=== PATIENT | male | born 1940 | race Caucasian/White ===

== ENCOUNTER 2019-04-23 12:48 | Inpatient (IN) | payer MEDICARE ==
--- NOTE | 2019-04-23 13:17 | ED ---
General Adult HPI - General Chief complaint: Shortness of Breath Stated complaint: SOB Time Seen by Provider: 04/23/19 12:54 Source: patient, RN/MD, EMS Mode of arrival: EMS Limitations: no limitations - History of Present Illness Initial comments: Dictation was produced using [employer] dictation software. please excuse any grammatical, word or spelling errors. Chief Complaint: 79-year-old male with past medical history of glaucoma and appendectomy presents via EMS as a transfer from [facility] for concerns for congestive heart failure. History of Present Illness: 79-year-old male he initially presented to [facility] emergency department for chief complaint of shortness of breath. Patient was initially seen at Dr. Alvarado's office for shortness of breath 1 week. Patient was constantly short of breath however it is slightly worse with exertion. Patient has not had medical care throughout most of his life. At that hospital is found to have abnormal prematurity peptide and elevated troponin. Patient has a brain atrophy peptide of 32,000. Patient was also found to have acute kidney injury to creatinine of 3.9. Patient evaluated at bedside denies any significant complaints at this time. He does feel slightly short of breath currently. He has no pain complaints. The ROS documented in this emergency department record has been reviewed and confirmed by me. Those systems with pertinent positive or negative responses have been documented in the HPI. All other systems are other negative and/or noncontributory. PHYSICAL EXAM: General Impression: Alert and oriented x3, not in acute distress HEENT: Normocephalic atraumatic, extra-ocular movements intact, pupils equal and reactive to light bilaterally, mucous membranes moist. Cardiovascular: Heart regular rate and rhythm, S1&S2 audible, no murmurs, rubs or gallops Chest: Lungs clear to auscultation bilaterally, no rhonchi, no wheeze, no rales Abdomen: Bowel sounds present, abdomen soft, non-tender, non-distended, no organomegaly Musculoskeletal: Pulses present and equal in all extremities, no peripheral edema Motor: no focal deficits noted Neurological: CN II-XII grossly intact, no focal motor or sensory deficits noted Skin: Intact with no visualized rashes Psych: Normal affect and mood ED course: 79-year-old male presents with abnormal laboratory evaluation. He was found to have a troponin of 0.08 32,000 and prematurity peptide, creatinine 3.9 with a BUN of 38. Patient's well-appearing at this time he has no significant complaints. He was given aspirin prior to transfer. He also had a triple paste placed on his left anterior chest. He is well-appearing and resting comfortably smiling. EKG from [facility] showed lateral precordial lead T-wave inversion and depression. There is no old EKG for comparison CT is findings are new. Nonetheless patient has no chest pain at the moment.Discussed patient case with Dr. carson who requests that we contact cardiology to let them know about the patient given his elevated troponin. Discussed patient is a Dr. Bowman he would like to be on consult. Patient given intravenous fluids for his acute kidney injury. Patient is well-appearing with Nitropaste. We will have patient admitted. Patient given intravenous fluids for acute kidney injury. Patient continues to deny any chest pain. - Related Data Home Medications Medication Instructions Recorded Confirmed No Known Home Medications 04/23/19 04/23/19 Allergies Allergy/AdvReac Type Severity Reaction Status Date / Time No Known Allergies Allergy Verified 04/23/19 13:18 Review of Systems ROS Statement: Those systems with pertinent positive or pertinent negative responses have been documented in the HPI. ROS Other: All systems not noted in ROS Statement are negative. Past Medical History Past Medical History: Eye Disorder Additional Past Medical History / Comment(s): GLAUCOMA History of Any Multi-Drug Resistant Organisms: None Reported Past Surgical History: Appendectomy Past Psychological History: No Psychological Hx Reported Smoking Status: Current every day smoker Past Alcohol Use History: None Reported Past Drug Use History: None Reported General Exam Limitations: no limitations Course Vital Signs 04/23/19 04/23/19 12:52 13:21 Temperature 97.8 F Pulse Rate 73 Respiratory 18 20 Rate O2 Sat by Pulse 98 Oximetry Disposition Clinical Impression: DORY (acute kidney injury), Elevated brain natriuretic peptide (BNP) level, Elevated troponin Disposition: ADMITTED IP TO THIS HOSP Condition: Fair Referrals: Elliot Alvarado MD [Primary Care Provider] - 1-2 days Decision Time: 13:58
[2019-04-23] MEDS ORDERED: SODIUM CHLORIDE 0.9% 500 ML IV STA (13:56)
[2019-04-23] MEDS ORDERED: NITROGLYCERIN SL TABS 0.4 MG TAB SUBLINGUAL PRN (13:58)
[2019-04-23] MEDS ORDERED: HEPARIN SODIUM,PORCINE 5,000 UNIT/ML 1 ML VIAL IV ONE (14:01)
[2019-04-23] MEDS ORDERED: HEPARIN SODIUM,PORCINE 5,000 UNIT/ML 1 ML VIAL IV PRN (14:01)
[2019-04-23] MEDS ORDERED: HEPARIN SOD,PORK IN 0.45% NACL 25,000 UNIT in 0.45% NACL 1 250ML.BAG IV SCH (14:15)
--- NOTE | 2019-04-23 14:42 | P.HPIM ---
History of Present Illness This is a pleasant 79 years old male with no significant past medical history. He follow-up with Dr. Alvarado but patient states he has not been in the doctor for 70 years. He smokes about half pack per day but he quit about 5 days ago for dyspnea. He went to see Dr. Alvarado couple days ago for the same and he asked him to come to emergency room, where he wanted to [facility] and from there he was transferred to [facility]. Patient states he has some abdominal bloating but he denies chest pain. No coughing. No headache. No dizziness. No change in urine or bowel habits. No abdominal pain. No nausea vomiting. No change in urine or bowel habits. No fever. He denies alcohol or illicit tracts. Vital showing hypertension with 177/84, saturating 99% on 2 L oxygen. Stites test looks stable. Test at [facility] showing EKG with sinus rhythm at [address] depression in the anterolateral lid, as well to lesser degree in the inferior leads. Chest x-ray: No acute process, he has hyperinflation compatible with COPDPro-BMP is 13-900, CBC is unremarkable except for mild anemia. Sodium and potassium are within normal limits, however creatinine is elevated at 3.9, liver enzymes were not elevated. Magnesium is 2.0, INR is 1.0, CPK 64, troponins are mildly elevated at 0.081 and 0.081 which are above reference range at [place] of 0.030. In the emergency room patient received 1 L of Normosol and was started on heparin drip. As well as aspirin Review of Systems CONSTITUTIONAL: No fever, no malaise, no fatigue. HEENT: No recent visual problems or hearing problems. Denied any sore throat. CARDIOVASCULAR: No orthopnea, PND, no palpitations, no syncope. PULMONARY: No shortness of breath, no cough, no hemoptysis. GASTROINTESTINAL: No diarrhea, no nausea, no vomiting, no abdominal pain. Normoactive bowel sounds. NEUROLOGICAL: No headaches, no weakness, no numbness. HEMATOLOGICAL: Denies any bleeding or petechiae. GENITOURINARY: Denies any burning micturition, frequency, or urgency. MUSCULOSKELETAL/RHEUMATOLOGICAL: Denies any joint pain, swelling, or any muscle pain. ENDOCRINE: Denies any polyuria or polydipsia. Past Medical History Past Medical History: Eye Disorder Additional Past Medical History / Comment(s): GLAUCOMA History of Any Multi-Drug Resistant Organisms: None Reported Past Surgical History: Appendectomy Past Psychological History: No Psychological Hx Reported Smoking Status: Current every day smoker Past Alcohol Use History: None Reported Past Drug Use History: None Reported Medications and Allergies Home Medications Medication Instructions Recorded Confirmed Type No Known Home Medications 04/23/19 04/23/19 History Allergies Allergy/AdvReac Type Severity Reaction Status Date / Time No Known Allergies Allergy Verified 04/23/19 13:18 Physical Exam Vitals: Vital Signs Temp Pulse Resp BP Pulse Ox 04/23/19 14:23 66 18 177/84 99 04/23/19 13:21 20 04/23/19 12:52 97.8 F 73 18 98 Intake and Output 04/22/19 04/23/19 04/23/19 22:59 06:59 14:59 Other: Weight 65.771 kg GENERAL: The patient is alert and oriented x3, not in any acute distress. Well developed, well nourished. HEENT: Pupils are round and equally reacting to light. EOMI. No scleral icterus. No conjunctival pallor. Normocephalic, atraumatic. No pharyngeal erythema. No thyromegaly. CARDIOVASCULAR: S1 and S2 present. No murmurs, rubs, or gallops. PULMONARY: Chest is clear to auscultation, no wheezing or crackles. ABDOMEN: Soft, nontender, nondistended, normoactive bowel sounds. No palpable organomegaly. MUSCULOSKELETAL: No joint swelling or deformity. EXTREMITIES: No cyanosis, clubbing, or pedal edema. NEUROLOGICAL: Gross neurological examination did not reveal any focal deficits. SKIN: No rashes. Assessment and Plan Assessment: Abnormal EKG with ST depression in the anterior lateral metastases and to lesser degree in the inferior leads. The view of elevated troponin Acute kidney injury Elevated proBNP, rule out acute CHF COPD, not in acute exacerbation Nicotine dependence Plan: this is a pleasant 79 years old male who presents with acute kidney injury and possible acute coronary artery disease. We'll call cardiology and nephrology consult. Check kidney ultrasound. We'll check echocardiogram. Continue with nicotine patch. Continue with heparin drip and aspirin. Follow-up creatinine level. Labs and medication were reviewed.. Continue same treatment. Continue with symptomatic treatment. . Monitor lytes and vitals. DVT and GI prophylaxis. Further recommendations of the clinical course of the patient DVT prophylaxis: Subcutaneous heparin GI Prophylaxis: Pepcid Prognosis is guarded
--- NOTE | 2019-04-23 17:00 | US ---
EXAMINATION TYPE: US renals and bladder DATE OF EXAM: 04/23/2019 COMPARISON: NONE CLINICAL HISTORY: Renal failure. abnormal labs. No pain EXAM MEASUREMENTS: Right Kidney: 10.1 x 5.7 x 4.9 cm Left Kidney: 8.7 x 3.5 x 6.3 cm Pre Void bladder volume: 1656 mL Post Void Residual Volume: 985.21 mL Right Kidney: Severe hydronephrosis visualized. No prominent visual change in hydronephrosis postvoi d. Left Kidney: Severe hydronephrosis visualized. No prominent visual change in hydronephrosis postvoid . Suboptimal visualization due to bowel gas. Appears smaller in size compared to contralateral kidn ey. Bladder: Severely distended. Wall- 3.7 mm. Possible inferior wall lesions Bilateral Jets not seen Normal Post Void Residual: NO IMPRESSION: There is moderate bilateral hydronephrosis. No ureteral jets were seen. Dilated urinary bladder with large post void residual volume of 1000 mL. There is some echogenicity within the dependent urinary b ladder that could be blood clot or debris. Tumor not excluded.
[2019-04-23] MEDS: hydrALAZINE HCL 20 MG/ML 1 ML VIAL IVP PRN (17:23)
--- NOTE | 2019-04-23 18:15 | ECHOF ---
Referral Reason:Rule out heart disease MEASUREMENTS -------- HEIGHT: 165.1 cm WEIGHT: 65.8 kg BP: 177/84 IVSd: 1.7 cm (0.6 - 1.1) LVIDd: 4.7 cm (3.9 - 5.3) LVPWd: 1.4 cm (0.6 - 1.1) IVSs: 1.8 cm LVIDs: 4.0 cm LVPWs: 1.9 cm RVIDd: 3.8 cm (< 3.3) LAESV Index (A-L): 46.11 ml/m Ao Diam: 2.4 cm (2.0 - 3.7) LA Diam: 5.5 cm (2.7 - 3.8) AV Cusp: 1.3 cm (1.5 - 2.6) MV E Mykel: 1.32 m/s MV DecT: 231 ms MV A Mykel: 0.80 m/s MV E/A Ratio: 1.65 AV maxP.72 mmHg AV meanP.70 mmHg AR PHT: 435 ms RAP: 5.00 mmHg RVSP: 67.35 mmHg FINDINGS -------- Sinus rhythm. This was a technically adequate study. The left ventricular size is normal. There is severe concentric left ventricular hypertrophy. Ove rall left ventricular systolic function is moderate-severely impaired with, an EF between 30 - 35 %. Basal lateral LV wall motion is hypokinetic. Basal inferior LV wall motion is hypokinetic. Mi d lateral LV wall motion is hypokinetic. Mid inferoseptal LV wall motion is dyskinetic. The right ventricle is mildly enlarged. Left atrium is severely dilated by volume. The right atrial size is normal. Interatrial and interventricular septum intact. The aortic valve is trileaflet and appears structurally normal. There is moderate aortic valve scle rosis without stenosis. There is moderate aortic regurgitation. There is no evidence of aortic st enosis. The mitral valve leaflets are moderately thickened. Severe mitral annular calcification present. Moderate mitral regurgitation is present. Moderate tricuspid regurgitation present. There is severe pulmonary hypertension. The right ventr icular systolic pressure, as measured by Doppler, is 67.35mmHg. There is no pulmonic regurgitation present. The aortic root size is normal. The inferior vena cava was not well visualized. There is a small, generalized pericardial effusion present. CONCLUSIONS -------- 1. Sinus rhythm. 2. This was a technically adequate study. 3. The left ventricular size is normal. 4. There is severe concentric left ventricular hypertrophy. 5. Overall left ventricular systolic function is moderate-severely impaired with, an EF between 30 - 35 %. 6. Basal lateral LV wall motion is hypokinetic. 7. Basal inferior LV wall motion is hypokinetic. 8. Mid lateral LV wall motion is hypokinetic. 9. Mid inferoseptal LV wall motion is dyskinetic. 10. The right ventricle is mildly enlarged. 11. Left atrium is severely dilated by volume. 12. The right atrial size is normal. 13. Interatrial and interventricular septum intact. 14. The aortic valve is trileaflet and appears structurally normal. 15. There is moderate aortic valve sclerosis without stenosis. 16. There is moderate aortic regurgitation. 17. There is no evidence of aortic stenosis. 18. The mitral valve leaflets are moderately thickened. 19. Severe mitral annular calcification present. 20. Moderate mitral regurgitation is present. 21. Moderate tricuspid regurgitation present. 22. There is severe pulmonary hypertension. 23. The right ventricular systolic pressure, as measured by Doppler, is 67.35mmHg. 24. There is no pulmonic regurgitation present. 25. The aortic root size is normal. 26. The inferior vena cava was not well visualized. 27. There is a small, generalized pericardial effusion present. COMPLIANCE OFFICER: Flor Perez RDCS
[2019-04-23] MEDS: TAMSULOSIN 0.4 MG CAP.ER.24H PO SCH (20:21)
[2019-04-23 20:56] LABS: Appearance,Urine Clear (Clear); Bilirubin,Urine Negative (Negative); Blood,Urine Negative (Negative); Color,Urine Light Yellow; Glucose,Urine (UA) Negative (Negative); Ketones,Urine Negative (Negative); Leukocyte Esterase,Urine Negative (Negative); Nitrite,Urine Negative (Negative); PH, Urine 6.5 (5.0-8.0); Protein,Urine Negative (Negative); Specific Gravity,Urine 1.006 (1.001-1.035); Urobilinogen,Urine <2.0 mg/dL (<2.0)
[2019-04-23] MEDS ORDERED: METOPROLOL TARTRATE 25 MG TAB PO SCH (21:00)
[2019-04-24] MEDS ORDERED: LIDOCAINE URO-JET JELLY 2% 5 ML KIT URETHRAL ONE (00:09)
[2019-04-24] MEDS: hydrALAZINE HCL 20 MG/ML 1 ML VIAL IVP PRN (00:22)
[2019-04-24] MEDS: METOPROLOL TARTRATE 25 MG TAB PO SCH ×2 (06:32→20:23)
[2019-04-24 06:44] LABS: Basophils % (A) 0 %; Eosinophils # (A) 0.2 k/uL (0-0.7); Eosinophils % (A) 2 %; HCT 36.4 % (39.0-53.0); HGB 12.1 gm/dL (13.0-17.5); Lymphocytes # (A) 1.5 k/uL (1.0-4.8); Lymphocytes % (A) 18 %; MCH 30.2 pg (25.0-35.0); MCHC 33.1 g/dL (31.0-37.0); Mean Platelet Volume 8.1; Monocytes # (A) 0.4 k/uL (0-1.0); Monocytes % (A) 5 %; Neutrophils # (A) 6.2 k/uL (1.3-7.7); Neutrophils % (A) 74 %; Platelet Count 212 k/uL (150-450); RDW 15.9 % (11.5-15.5); WBC 8.4 k/uL (3.8-10.6)
[2019-04-24 06:59] LABS: Calcium 9.3 mg/dL (8.4-10.2)
[2019-04-24] MEDS: ASPIRIN 325 MG TAB PO SCH (08:03)
[2019-04-24] MEDS: TAMSULOSIN 0.4 MG CAP.ER.24H PO SCH (08:07)
--- NOTE | 2019-04-24 12:13 | P.GSCN ---
History of Present Illness Consult date: 04/24/19 History of present illness: The patient is a pleasant 79-year-old gentleman who was sent initially by Dr. Alvarado to [facility] and then to [facility] because of irregular heartbeat hypertension and potential cardiac issues. The patient was being seen by Dr. Alvarado as a checkup because of some shortness of breath. Abnormalities were found. He was hypertensive. There is a concern of cardiac dysfunction and he was sent to [facility]. He is admitted the hospital as a possible myocardial infarction. He is found to have renal failure with a creatinine of 3.7. A renal ultrasound was obtained identifying bilateral hydronephrosis and a bladder full of urine. Eventually catheter is placed last night and a large volume of urine was obtained. The bladder scan was 963 mL. The exact amount I'm uncertain. The intake and output record shows over 2 L of urine 30-40 minutes recorded after the catheter was placed. The patient is interviewed at the bedside. He is comfortable awake and alert. His family and are with him. Prior to hospitalization he admits to frequent urination and particularly at nighttime hourly. He thought this is due to increased he denies incontinence but his daughter state that he has urgency incontinence. There has not been any blood in the urine although there is some in the catheter today which is probably post decompression of the bladder or due to catheter difficulties. The patient has not seen a urologist nor is he had a urologic examination and many years. He has no major back or bowel problems prior to this hospitalization. Review of Systems - Constitutional Reports as per HPI - Respiratory Reports dyspnea - Genitourinary Reports incontinence, Reports urinary frequency Past Medical History Past Medical History: Eye Disorder Additional Past Medical History / Comment(s): GLAUCOMA History of Any Multi-Drug Resistant Organisms: None Reported Past Surgical History: Appendectomy Past Anesthesia/Blood Transfusion Reactions: No Reported Reaction Past Psychological History: No Psychological Hx Reported Smoking Status: Former smoker Past Alcohol Use History: None Reported Past Drug Use History: None Reported - Past Family History Father History Unknown: Yes Mother Family Medical History: Hypertension Medications and Allergies Home Medications Medication Instructions Recorded Confirmed Type Latanoprost/Pf [Latanoprost 0.005% 1 drop BOTH EYES HS 04/23/19 04/23/19 History Eye Drop] Allergies Allergy/AdvReac Type Severity Reaction Status Date / Time No Known Allergies Allergy Verified 04/23/19 13:18 Surgical - Exam Vital Signs Temp Pulse Resp Pulse Ox 97.8 F 73 18 98 04/23/19 12:52 04/23/19 12:52 04/23/19 12:52 04/23/19 12:52 - General well developed, well nourished, no distress - Eyes PERRL - ENT no hearing loss - Neck no masses - Respiratory normal expansion, normal respiratory effort - Cardiovascular Rhythm: regular - Abdomen Abdomen: soft, non tender - Genitourinary Indwelling catheter, circumcised phallus. 40-50 g benign prostate normal penis with no external lesions, testicles present - Integumentary no rash, no growths - Neurologic normal sensation - Musculoskeletal normal posture - Psychiatric oriented to time, oriented to person, oriented to place, speech is normal, memory intact Results - Labs 04/24/19 05:58 04/24/19 05:58 Abnormal Lab Results - Last 24 Hours (Table) 04/23/19 04/23/19 04/23/19 Range/Units 15:38 20:59 20:59 RBC (4.30-5.90) m/uL Hgb (13.0-17.5) gm/dL Hct (39.0-53.0) % RDW (11.5-15.5) % APTT 52.9 H (22.0-30.0) sec Chloride (98-107) mmol/L BUN (9-20) mg/dL Creatinine (0.66-1.25) mg/dL Glucose (74-99) mg/dL Troponin I 0.072 H* 0.066 H* (0.000-0.034) ng/mL LDL Cholesterol, Calc (0-99) mg/dL 04/24/19 04/24/19 04/24/19 Range/Units 05:58 05:58 05:58 RBC 4.00 L (4.30-5.90) m/uL Hgb 12.1 L (13.0-17.5) gm/dL Hct 36.4 L (39.0-53.0) % RDW 15.9 H (11.5-15.5) % APTT 34.0 H (22.0-30.0) sec Chloride 108 H (98-107) mmol/L BUN 42 H (9-20) mg/dL Creatinine 3.77 H (0.66-1.25) mg/dL Glucose 107 H (74-99) mg/dL Troponin I (0.000-0.034) ng/mL LDL Cholesterol, Calc 135 H (0-99) mg/dL Diabetes panel 04/24/19 Range/Units 05:58 Sodium 141 (137-145) mmol/L Potassium 5.0 (3.5-5.1) mmol/L Chloride 108 H (98-107) mmol/L Carbon Dioxide 22 (22-30) mmol/L BUN 42 H (9-20) mg/dL Creatinine 3.77 H (0.66-1.25) mg/dL Glucose 107 H (74-99) mg/dL Calcium 9.3 (8.4-10.2) mg/dL Triglycerides 114 (<150) mg/dL HDL Cholesterol 40 (40-60) mg/dL Calcium panel 04/24/19 Range/Units 05:58 Calcium 9.3 (8.4-10.2) mg/dL Pituitary panel 04/24/19 Range/Units 05:58 Sodium 141 (137-145) mmol/L Potassium 5.0 (3.5-5.1) mmol/L Chloride 108 H (98-107) mmol/L Carbon Dioxide 22 (22-30) mmol/L BUN 42 H (9-20) mg/dL Creatinine 3.77 H (0.66-1.25) mg/dL Glucose 107 H (74-99) mg/dL Calcium 9.3 (8.4-10.2) mg/dL Adrenal panel 04/24/19 Range/Units 05:58 Sodium 141 (137-145) mmol/L Potassium 5.0 (3.5-5.1) mmol/L Chloride 108 H (98-107) mmol/L Carbon Dioxide 22 (22-30) mmol/L BUN 42 H (9-20) mg/dL Creatinine 3.77 H (0.66-1.25) mg/dL Glucose 107 H (74-99) mg/dL Calcium 9.3 (8.4-10.2) mg/dL Assessment and Plan Assessment: Impression: Bilateral hydronephrosis due to urine retention. Urine retention due to enlarged prostate acute versus chronic. Renal insufficiency due to the above. Acute versus chronic. Questional cardiac issues Recommendation: The catheter should stay in place. I will add Flomax to the regimen temporarily. The recuperation of his creatinine will likely inform he has to the chronicity of this problem. The longer takes for the creatinine to normalize if it does normalized would signal a more chronic rather than acute problem. This may also give me an idea as to whether the patient will be available to void spontaneously or whether he has a decompensated bladder. I will follow this patient with you.
--- NOTE | 2019-04-24 13:23 | P.PN ---
Subjective This is a pleasant 79 years old male with no significant past medical history. He follow-up with Dr. Alvarado but patient states he has not been in the doctor for 70 years. He smokes about half pack per day but he quit about 5 days ago for dyspnea. He went to see Dr. Alvarado couple days ago for the same and he asked him to come to emergency room, where he wanted to [facility] and from there he was transferred to [facility]. Patient states he has some abdominal bloating but he denies chest pain. No coughing. No headache. No dizziness. No change in urine or bowel habits. No abdominal pain. No nausea vomiting. No change in urine or bowel habits. No fever. He denies alcohol or illicit tracts. Vital showing hypertension with 177/84, saturating 99% on 2 L oxygen. [place] test looks stable. Test at [facility] showing EKG with sinus rhythm at [address] depression in the anterolateral lid, as well to lesser degree in the inferior leads. Chest x-ray: No acute process, he has hyperinflation compatible with COPDPro-BMP is 13-900, CBC is unremarkable except for mild anemia. Sodium and potassium are within normal limits, however creatinine is elevated at 3.9, liver enzymes were not elevated. Magnesium is 2.0, INR is 1.0, CPK 64, troponins are mildly elevated at 0.081 and 0.081 which are above reference range at [facility] of 0.030. In the emergency room patient received 1 L of Normosol and was started on heparin drip. As well as aspirin 04/24/2019 Patient is awake and alert with no chest pain or dyspnea. No abdominal pain. No dizziness. He remains on heparin drip for a possible non-STEMI ,He was able to void yesterday however however renal ultrasounds showing bilateral hydronephrosis, bladder scan showed more than a liter of urinary retention, Turcios catheter has to be placed overnight and 2 L of urine drained. This morning urine is pinkish in color. However patient denies suprapubic or flank pain. Flomax was added. Urine analysis is negative. Creatinine today is 3.7 patient is also to be evaluated by bridal stylist sales consultant. His creatinine is 0.07 and 0.06. Patient has had blood pressure and he was started on metoprolol 50 mg twice a day. EKG showing possible atrial fibrillation Review of systems CONSTITUTIONAL: No fever, no malaise, no fatigue. HEENT: No recent visual problems or hearing problems. Denied any sore throat. CARDIOVASCULAR: No orthopnea, PND, no palpitations, no syncope. PULMONARY: No shortness of breath, no cough, no hemoptysis. GASTROINTESTINAL: No diarrhea, no nausea, no vomiting, no abdominal pain. Normoactive bowel sounds. NEUROLOGICAL: No headaches, no weakness, no numbness. HEMATOLOGICAL: Denies any bleeding or petechiae. GENITOURINARY: Denies any burning micturition, frequency, or urgency. MUSCULOSKELETAL/RHEUMATOLOGICAL: Denies any joint pain, swelling, or any muscle pain. ENDOCRINE: Denies any polyuria or polydipsia. Active Medications Generic Name Dose Route Start Last Admin Trade Name Freq PRN Reason Stop Dose Admin Aspirin 325 mg 04/24/19 09:00 04/24/19 08:03 Aspirin PO 325 mg DAILY EDI Administration Heparin Sodium (Porcine) 0 unit 04/23/19 14:01 04/24/19 08:03 Heparin IV 4,000 unit PER PROTOCOL PRN Administration Low PTT Protocol Hydralazine HCl 10 mg 04/23/19 17:12 04/24/19 00:22 Apresoline IVP 10 mg Q6HR PRN Administration Blood Pressure - High Heparin Sodium/Sodium Chloride 250 mls @ 7.893 mls/hr 04/23/19 14:15 04/24/19 08:05 25,000 unit/ Sodium Chloride IV 15 units/kg/hr .Q24H [facility] 9.866 mls/hr Titration Protocol 12 UNITS/KG/HR Metoprolol Tartrate 50 mg 04/24/19 06:30 04/24/19 06:32 Lopressor PO 50 mg BID EDI Administration Nitroglycerin 0.4 mg 04/23/19 13:58 Nitrostat SUBLINGUAL Q5M PRN Chest Pain Tamsulosin HCl 0.4 mg 04/23/19 19:45 04/24/19 08:07 Flomax PO 0.4 mg PC-BRKFST EDI Administration Objective - Vital Signs Vital signs: Vital Signs Temp 98 F 04/24/19 04:00 Pulse 98 04/24/19 04:00 Resp 16 04/24/19 04:00 BP 172/82 04/24/19 04:00 Pulse Ox 98 08/16/19 04:00 Intake & Output 04/23/19 04/24/19 04/24/19 18:59 06:59 18:59 Intake Total 360 139.969 Output Total 3375 1200 Balance -3015 -1060.031 Weight 65.9 kg 66.6 kg Intake: Intake, IV Titration 139.969 Amount Heparin Sod,Pork in 0.45% 139.969 NaCl 25,000 unit In 0.45 % NaCl 1 250ml.bag @ 12 UNITS/KG/HR 7.893 mls/hr IV .Q24H [facility] Rx#: [id number] Oral 360 Output: Urine 3375 1200 Other: Voiding Method Indwelling Catheter # Voids 2 - Exam GENERAL: The patient is alert and oriented x3, not in any acute distress. Well developed, well nourished. HEENT: Pupils are round and equally reacting to light. EOMI. No scleral icterus. No conjunctival pallor. Normocephalic, atraumatic. No pharyngeal erythema. No thyromegaly. CARDIOVASCULAR: S1 and S2 present. No murmurs, rubs, or gallops. PULMONARY: Chest is clear to auscultation, no wheezing or crackles. ABDOMEN: Soft, nontender, nondistended, normoactive bowel sounds. No palpable organomegaly. Turcios catheter in place MUSCULOSKELETAL: No joint swelling or deformity. EXTREMITIES: No cyanosis, clubbing, or pedal edema. NEUROLOGICAL: Gross neurological examination did not reveal any focal deficits. SKIN: No rashes. - Labs CBC & Chem 7: 04/24/19 05:58 04/24/19 05:58 Labs: Abnormal Lab Results - Last 24 Hours (Table) 04/23/19 04/23/19 04/23/19 Range/Units 15:38 20:59 20:59 RBC (4.30-5.90) m/uL Hgb (13.0-17.5) gm/dL Hct (39.0-53.0) % RDW (11.5-15.5) % APTT 52.9 H (22.0-30.0) sec Chloride (98-107) mmol/L BUN (9-20) mg/dL Creatinine (0.66-1.25) mg/dL Glucose (74-99) mg/dL Troponin I 0.072 H* 0.066 H* (0.000-0.034) ng/mL LDL Cholesterol, Calc (0-99) mg/dL 04/24/19 04/24/19 04/24/19 Range/Units 05:58 05:58 05:58 RBC 4.00 L (4.30-5.90) m/uL Hgb 12.1 L (13.0-17.5) gm/dL Hct 36.4 L (39.0-53.0) % RDW 15.9 H (11.5-15.5) % APTT 34.0 H (22.0-30.0) sec Chloride 108 H (98-107) mmol/L BUN 42 H (9-20) mg/dL Creatinine 3.77 H (0.66-1.25) mg/dL Glucose 107 H (74-99) mg/dL Troponin I (0.000-0.034) ng/mL LDL Cholesterol, Calc 135 H (0-99) mg/dL Assessment and Plan Assessment: Abnormal EKG with ST depression in the anterior lateral metastases and to lesser degree in the inferior leads. The view of elevated troponin Acute systolic congestive heart failure. Ejection fraction 30-35% Acute kidney injury, versus chronic kidney disease Bilateral hydronephrosis secondary to urinary to tension, mostly related to enlarged prostate COPD, not in acute exacerbation Nicotine dependence Plan: this is a pleasant 79 years old male who presents with acute kidney injury and possible acute coronary artery disease. We'll call cardiology and nephrology consult. Neurology input is appreciated, patient was started on Flomax. monitor creatinine. Continue with nicotine patch. Continue with heparin drip and aspirin. Follow-up creatinine level. Labs and medication were reviewed.. Continue same treatment. Continue with symptomatic treatment. . Monitor lytes and vitals. DVT and GI prophylaxis. Further recommendations of the clinical course of the patient DVT prophylaxis: heparin GI Prophylaxis: Pepcid Prognosis is guarded
--- NOTE | 2019-04-24 13:34 | P.CRDCN ---
History of Present Illness Consult date: 04/24/19 Chief complaint: Not feeling well History of present illness: This is a pleasant 79-year-old gentleman did not see a physician in more than 50 years with unknown past medical history was transferred from [facility] to [facility] for further evaluation off abnormal kidney function and elevated creatinine. For the last few weeks, the patient has not been feeding well. He has been feeling tired and fatigued. He was also experiencing lately symptoms of shortness of breath even with minimal exertion. No chest pain or chest discomfort. He presented to the emergency room at [facility] where a baseline blood work was performed including creatinine and that came in to be elevated and the patient was transferred here for further evaluation. He was found to have obstructive uropathy and he was seen by a urologist and a Turcios catheter was placed. We involved in his care because off abnormal cardiac enzymes. The troponin is elevated. The patient did not have any symptoms of chest pain or chest discomfort, but he was experiencing shortness of breath with minimal exertion lately. No dizziness or lightheadedness, heart racing or fluttering, or syncope. He underwent an echocardiogram which revealed severe cardiomyopathy with EF between 30-35% with evidence of wall motion abnormalities concerning for severe underlying coronary artery disease. I did review the EKG from [facility] and that revealed sinus mechanism with sinus tachycardia and evidence off T-wave inversion in the inferolateral leads quite concerning for severe underlying coronary artery disease. Currently the patient is not experiencing any symptoms of chest pain or chest discomfort. His BNP was 13,000. His hemoglobin is slightly low. INR is 1.0. Currently the patient is on aspirin and he was also started on heparin and also he was started on metoprolol. Please note that the echocardiogram also revealed moderate MR, mode rate TR, severe pulmonary hypertension. Past Medical History Past Medical History: Eye Disorder Additional Past Medical History / Comment(s): GLAUCOMA History of Any Multi-Drug Resistant Organisms: None Reported Past Surgical History: Appendectomy Past Anesthesia/Blood Transfusion Reactions: No Reported Reaction Past Psychological History: No Psychological Hx Reported Smoking Status: Former smoker Past Alcohol Use History: None Reported Past Drug Use History: None Reported - Past Family History Father History Unknown: Yes Mother Family Medical History: Hypertension Medications and Allergies Home Medications Medication Instructions Recorded Confirmed Type Latanoprost/Pf [Latanoprost 0.005% 1 drop BOTH EYES HS 04/23/19 04/23/19 History Eye Drop] Allergies Allergy/AdvReac Type Severity Reaction Status Date / Time No Known Allergies Allergy Verified 04/23/19 13:18 Physical Exam Vitals: Vital Signs Temp Pulse Pulse Resp BP BP Pulse Ox 04/24/19 04:00 98 F 98 16 172/82 98 04/24/19 00:00 85 16 194/88 97 04/23/19 20:00 95 16 04/23/19 19:34 98.2 F 95 16 157/72 98 04/23/19 16:00 97.6 F 83 210/97 97 04/23/19 15:29 98.2 F 65 18 185/84 100 04/23/19 14:23 66 18 177/84 99 Intake and Output 04/23/19 04/24/19 04/24/19 22:59 06:59 14:59 Intake Total 360 139.969 Output Total 250 3125 1200 Balance 110 -3125 -1060.031 Intake: Intake, IV Titration 139.969 Amount Heparin Sod,Pork in 0.45% 139.969 NaCl 25,000 unit In 0.45 % NaCl 1 250ml.bag @ 12 UNITS/KG/HR 7.893 mls/hr IV .Q24H [facility] Rx#: [id number] Oral 360 Output: Urine 250 3125 1200 Other: Voiding Method Urinal Indwelling Catheter Weight 65.9 kg 66.6 kg - Constitutional General appearance: no acute distress - Respiratory Respiratory: bilateral: diminished - Cardiovascular Rhythm: regular Heart sounds: normal: S1, S2 Abnormal Heart Sounds: systolic murmur Results 04/24/19 05:58 04/24/19 05:58 Cardiac Enzymes 04/23/19 04/23/19 Range/Units 15:38 20:59 Troponin I 0.072 H* 0.066 H* (0.000-0.034) ng/mL Coagulation 04/23/19 04/24/19 Range/Units 20:59 05:58 APTT 52.9 H 34.0 H (22.0-30.0) sec Lipids 04/24/19 Range/Units 05:58 Triglycerides 114 (<150) mg/dL Cholesterol 198 (<200) mg/dL HDL Cholesterol 40 (40-60) mg/dL CBC 04/24/19 Range/Units 05:58 WBC 8.4 (3.8-10.6) k/uL RBC 4.00 L (4.30-5.90) m/uL Hgb 12.1 L (13.0-17.5) gm/dL Hct 36.4 L (39.0-53.0) % Plt Count 212 (150-450) k/uL Comprehensive Metabolic Panel 04/24/19 Range/Units 05:58 Sodium 141 (137-145) mmol/L Potassium 5.0 (3.5-5.1) mmol/L Chloride 108 H (98-107) mmol/L Carbon Dioxide 22 (22-30) mmol/L BUN 42 H (9-20) mg/dL Creatinine 3.77 H (0.66-1.25) mg/dL Glucose 107 H (74-99) mg/dL Calcium 9.3 (8.4-10.2) mg/dL Current Medications Generic Name Dose Route Start Last Admin Trade Name Freq PRN Reason Stop Dose Admin Aspirin 325 mg 04/24/19 09:00 04/24/19 08:03 Aspirin PO 325 mg DAILY EDI Administration Hydralazine HCl 10 mg 04/23/19 17:12 04/24/19 00:22 Apresoline IVP 10 mg Q6HR PRN Administration Blood Pressure - High Metoprolol Tartrate 50 mg 04/24/19 06:30 04/24/19 06:32 Lopressor PO 50 mg BID EDI Administration Nitroglycerin 0.4 mg 04/23/19 13:58 Nitrostat SUBLINGUAL Q5M PRN Chest Pain Tamsulosin HCl 0.4 mg 04/23/19 19:45 04/24/19 08:07 Flomax PO 0.4 mg PC-BRKFST EDI Administration Intake and Output 04/23/19 04/24/19 04/24/19 22:59 06:59 14:59 Intake Total 360 139.969 Output Total 250 3125 1200 Balance 110 -3125 -1060.031 Intake: Intake, IV Titration 139.969 Amount Heparin Sod,Pork in 0.45% 139.969 NaCl 25,000 unit In 0.45 % NaCl 1 250ml.bag @ 12 UNITS/KG/HR 7.893 mls/hr IV .Q24H [facility] Rx#: [id number] Oral 360 Output: Urine 250 3125 1200 Other: Voiding Method Urinal Indwelling Catheter Weight 65.9 kg 66.6 kg 04/24/19 05:58 04/24/19 05:58 Assessment and Plan Assessment: Assessment #1 acute renal failure secondary to urinary obstruction #2 acute non-ST elevation myocardial infarction #3 cardiomyopathy was EF between 30-35% #4 valvular heart disease with moderate MR and moderate TR #5 severe pulmonary hypertension #6 systemic hypertension #7 obstructive uropathy #8 multiple comorbid conditions Plan #1 currently the patient is diuresing with a Turcios catheter but he does have hematuria. #2 I am going to DC the heparin because of the above reasoning #3 continue aspirin and metoprolol #4 the echocardiogram was reviewed with above findings #5 conservative medical approach at this point of time for the acute non-ST elevation OK, giving the acute renal failure, the hematuria, and the absence of chest pain or chest discomfort #6 consider coronary angiogram down the line Thank you for allowing us participate in his care and we will continue following up with the patient
[2019-04-24] MEDS: hydrALAZINE HCL 25 MG TAB PO SCH ×2 (17:25→20:23)
--- NOTE | 2019-04-24 19:32 | CONS ---
CONSULTATION REASON FOR CONSULT: Renal failure. HISTORY OF PRESENT ILLNESS: Patient is a 79-year-old male who does not follow up with a physician as outpatient. He was admitted to the hospital with complaints of weakness, not feeling well. He had decreased appetite and some nausea. Serum creatinine was noted to be 3.7 mg/dL. Patient denies any previous history of kidney diseases. A Turcios catheter was placed with 3 L of urine obtained on initial Turcios placement. Patient denied any significant prostatic issues previously. Troponin was borderline at 0.072. UA was completely negative. No history of use of nonsteroidal anti-inflammatory agents. Blood pressure was not low. Patient was not on any medications at home. PAST MEDICAL HISTORY: None. PAST SURGICAL HISTORY: Appendectomy. SOCIAL HISTORY: Positive for smoking. No history of drug abuse or alcohol abuse. MEDICATIONS: None. ALLERGIES: NONE. PHYSICAL EXAMINATION: Patient is currently comfortable, awake, alert, oriented x3, not in any acute distress. Blood pressure this morning 169/74, heart rate 73 per minute. Patient is afebrile. EXAMINATION OF THE HEART: S1 and S2. EXAMINATION OF LUNGS: Bilateral breath sounds are heard. ABDOMEN: Soft, non-tender. Examination of lower extremities shows no evidence of edema. SKIN FORMER exam is grossly intact. LABS: Sodium 141, potassium 5.0, chloride 108, BUN 42, serum creatinine 3.7, troponin 0.66. UA completely negative for blood, protein or cells. Hemoglobin 12.1 g/dL. ASSESSMENT: 1. Acute kidney injury, obstructive uropathy, status post Turcios catheter placement. Repeat labs in a.m. Continue to avoid nephrotoxic agents and continue to maintain patient on IV fluids. 2. Hypertension. Patient is maintained on hydralazine and Lopressor, which has been started in the hospital. 3. Borderline elevated troponins. Heparin has been discontinued. Patient was evaluated by Cardiology. PLAN: Continue with indwelling Turcios catheter. Repeat labs in a.m. Avoid nephrotoxic agents. Continue with the Flomax. Patient will need followup in Urology as outpatient. Maintain gentle IV hydration. Thank you for this consultation. Will continue to follow the patient with you during his hospitalization. MMODL / IJN: [id number] /
[2019-04-24] MEDS: LATANOPROST 0.005% OPHTH DROPS 2.5 ML BTL BOTH EYES SCH (20:23)
[2019-04-24] MEDS: SODIUM CHLORIDE 0.9% 1,000 ML IV SCH (20:24)
[2019-04-24] MEDS: HEPARIN SODIUM,PORCINE 5,000 UNIT/ML 1 ML VIAL SQ SCH (20:51)
[2019-04-25 06:43] LABS: Basophils % (A) 0 %; Eosinophils # (A) 0.2 k/uL (0-0.7); Eosinophils % (A) 3 %; HGB 10.3 gm/dL (13.0-17.5); Lymphocytes # (A) 1.7 k/uL (1.0-4.8); Lymphocytes % (A) 27 %; MCHC 33.3 g/dL (31.0-37.0); MCV 90.2 fL (80.0-100.0); Mean Platelet Volume 7.8; Monocytes # (A) 0.5 k/uL (0-1.0); Monocytes % (A) 8 %; Neutrophils # (A) 3.9 k/uL (1.3-7.7); Neutrophils % (A) 61 %; Platelet Count 183 k/uL (150-450); RBC 3.44 m/uL (4.30-5.90); RDW 15.3 % (11.5-15.5); WBC 6.3 k/uL (3.8-10.6)
[2019-04-25 06:46] LABS: Calcium 8.4 mg/dL (8.4-10.2)
[2019-04-25] MEDS: SODIUM CHLORIDE 0.9% 1,000 ML IV SCH (09:02)
[2019-04-25] MEDS: METOPROLOL TARTRATE 25 MG TAB PO SCH ×2 (09:03→20:30)
[2019-04-25] MEDS: TAMSULOSIN 0.4 MG CAP.ER.24H PO SCH (09:04)
[2019-04-25] MEDS: ASPIRIN 325 MG TAB PO SCH (09:04)
[2019-04-25] MEDS: hydrALAZINE HCL 25 MG TAB PO SCH ×3 (09:04→20:30)
[2019-04-25] MEDS: HEPARIN SODIUM,PORCINE 5,000 UNIT/ML 1 ML VIAL SQ SCH ×2 (09:05→20:30)
--- NOTE | 2019-04-25 09:52 | P.PN ---
Subjective Patient is seen in follow-up for acute kidney injury. Unknown baseline renal function. Creatinine was 3.77 on admission and is 3.36 today. He was noted to have urinary retention and currently has a Turcios catheter in place. He is nonoliguric. Oral intake is good. No vomiting or diarrhea. No chest pain or shortness of breath. Vital signs are stable. General: The patient appeared well nourished and normally developed. HEENT: Head exam is unremarkable. Neck is without jugular venous distension. LUNGS: Lungs are clear to auscultation and percussion. Breath sounds decreased. HEART: Rate and Rhythm are regular. First and second heart sounds normal. No murmurs, rubs or gallops. ABDOMEN: Abdominal exam reveals normal bowel sounds. Non-tender and non- distended. No evidence of peritonitis. EXTREMITITES: No clubbing, cyanosis, or edema. Objective - Vital Signs Vital signs: Vital Signs Temp 98.3 F 04/25/19 08:00 Pulse 89 04/25/19 08:00 Resp 20 04/25/19 08:00 BP 141/72 04/25/19 08:00 Pulse Ox 94 L 04/25/19 08:00 Intake & Output 04/24/19 04/25/19 04/25/19 18:59 06:59 18:59 Intake Total 859.969 600 210 Output Total 1200 700 Balance -340.031 -100 210 Weight 66.6 kg 60.9 kg Intake: Intake, IV Titration 139.969 Amount Heparin Sod,Pork in 0.45% 139.969 NaCl 25,000 unit In 0.45 % NaCl 1 250ml.bag @ 12 UNITS/KG/HR 7.893 mls/hr IV .Q24H [facility] Rx#: [id number] Oral 720 600 210 Output: Urine 1200 700 Other: Voiding Method Indwelling Catheter Indwelling Catheter # Voids 1 - Labs CBC & Chem 7: 04/25/19 06:05 04/25/19 06:05 Labs: Abnormal Lab Results - Last 24 Hours (Table) 04/25/19 04/25/19 Range/Units 06:05 06:05 RBC 3.44 L (4.30-5.90) m/uL Hgb 10.3 L (13.0-17.5) gm/dL Hct 31.0 L (39.0-53.0) % BUN 38 H (9-20) mg/dL Creatinine 3.36 H (0.66-1.25) mg/dL Assessment and Plan Plan: Assessment: 1. Acute kidney injury secondary to obstructive uropathy and urinary retention. Creatinine was 3.77 on admission and is 3.36 today. Unknown baseline renal function. UA is benign. Left kidney noted to be somewhat atrophic. 2. Urinary retention status post Turcios catheter placement. 3. Moderate bilateral hydronephrosis. Urology following. 4. Benign hypertension. Stable. 5. Acute systolic CHF with ejection fraction of 30-35% with moderate aortic regurgitation, moderate mitral regurgitation and moderate tricuspid regurgitation. 6. Severe pulmonary hypertension. Plan: Maintain normal saline at 50 mL an hour. Maintain Turcios catheter. Patient will need to follow-up outpatient in the next 1-2 weeks. Will need to establish his baseline renal function.
--- NOTE | 2019-04-25 10:57 | P.PN ---
Subjective Progress Note Date: 04/25/19 The patient is in the hospital with coronary problems as well as urine retention. He is found to have bilateral hydronephrosis and urinary retention. His creatinine is only dropped a little from 3.8 to 3.3. Makes me suspicious of a more chronic outlet obstruction. She continue with the catheter we will monitor his creatinine. I will decide when I want the catheter removed and how I wanted to a urologic follow-up. Objective - Vital Signs Vital signs: Vital Signs Temp 98.3 F 04/25/19 08:00 Pulse 89 04/25/19 08:00 Resp 20 04/25/19 08:00 BP 141/72 04/25/19 08:00 Pulse Ox 94 L 04/25/19 08:00 Intake & Output 04/24/19 04/25/19 04/25/19 18:59 06:59 18:59 Intake Total 859.969 600 210 Output Total 1200 700 Balance -340.031 -100 210 Weight 66.6 kg 60.9 kg Intake: Intake, IV Titration 139.969 Amount Heparin Sod,Pork in 0.45% 139.969 NaCl 25,000 unit In 0.45 % NaCl 1 250ml.bag @ 12 UNITS/KG/HR 7.893 mls/hr IV .Q24H [facility] Rx#: [id number] Oral 720 600 210 Output: Urine 1200 700 Other: Voiding Method Indwelling Catheter Indwelling Catheter # Voids 1 - Labs CBC & Chem 7: 04/25/19 06:05 04/25/19 06:05 Labs: Abnormal Lab Results - Last 24 Hours (Table) 04/25/19 04/25/19 Range/Units 06:05 06:05 RBC 3.44 L (4.30-5.90) m/uL Hgb 10.3 L (13.0-17.5) gm/dL Hct 31.0 L (39.0-53.0) % BUN 38 H (9-20) mg/dL Creatinine 3.36 H (0.66-1.25) mg/dL
--- NOTE | 2019-04-25 13:13 | P.PN ---
Subjective This is a pleasant 79 years old male with no significant past medical history. He follow-up with Dr. Alvarado but patient states he has not been in the doctor for 70 years. He smokes about half pack per day but he quit about 5 days ago for dyspnea. He went to see Dr. Alvarado couple days ago for the same and he asked him to come to emergency room, where he wanted to [facility] and from there he was transferred to [facility]. Patient states he has some abdominal bloating but he denies chest pain. No coughing. No headache. No dizziness. No change in urine or bowel habits. No abdominal pain. No nausea vomiting. No change in urine or bowel habits. No fever. He denies alcohol or illicit tracts. Vital showing hypertension with 177/84, saturating 99% on 2 L oxygen. Bowles test looks stable. Test at [facility] showing EKG with sinus rhythm at [address] depression in the anterolateral lid, as well to lesser degree in the inferior leads. Chest x-ray: No acute process, he has hyperinflation compatible with COPDPro-BMP is 13-900, CBC is unremarkable except for mild anemia. Sodium and potassium are within normal limits, however creatinine is elevated at 3.9, liver enzymes were not elevated. Magnesium is 2.0, INR is 1.0, CPK 64, troponins are mildly elevated at 0.081 and 0.081 which are above reference range at [place] of 0.030. In the emergency room patient received 1 L of Normosol and was started on heparin drip. As well as aspirin 04/24/2019 Patient is awake and alert with no chest pain or dyspnea. No abdominal pain. No dizziness. He remains on heparin drip for a possible non-STEMI ,He was able to void yesterday however however renal ultrasounds showing bilateral hydronephrosis, bladder scan showed more than a liter of urinary retention, Turcios catheter has to be placed overnight and 2 L of urine drained. This morning urine is pinkish in color. However patient denies suprapubic or flank pain. Flomax was added. Urine analysis is negative. Creatinine today is 3.7 patient is also to be evaluated by fuel agent. His creatinine is 0.07 and 0.06. Patient has had blood pressure and he was started on metoprolol 50 mg twice a day. EKG showing possible atrial fibrillation 04/25/2019 Patient is awake and alert with no other new complaints. No chest pain or dyspnea. He still have the Turcios catheter with urine showing hematuria. Vitas looks stable. no significant change however there is drop in the hemoglobin from 12.1 down to 10.3. Heparin is on hold. Stress of BMP is unremarkable. ProBNP is significantly improved from 32,000 down to 1700. Creatinine still at 3.3 with slight improvement down from 3.7. Patient to continue on gentle hydration with normal saline at 50 mg or as per finishing range supervisor recommendation. Objective - Vital Signs Vital signs: Vital Signs Temp 97.9 F 04/25/19 11:26 Pulse 65 04/25/19 11:26 Resp 22 04/25/19 11:26 BP 136/68 04/25/19 11:26 Pulse Ox 97 04/25/19 11:26 Intake & Output 04/24/19 04/25/19 04/25/19 18:59 06:59 18:59 Intake Total 859.969 600 450 Output Total 1200 700 Balance -340.031 -100 450 Weight 66.6 kg 60.9 kg Intake: Intake, IV Titration 139.969 Amount Heparin Sod,Pork in 0.45% 139.969 NaCl 25,000 unit In 0.45 % NaCl 1 250ml.bag @ 12 UNITS/KG/HR 7.893 mls/hr IV .Q24H [facility] Rx#: [id number] Oral 720 600 450 Output: Urine 1200 700 Other: Voiding Method Indwelling Catheter Indwelling Catheter Indwelling Catheter # Voids 1 # Bowel Movements 0 - Exam GENERAL: The patient is alert and oriented x3, not in any acute distress. Well developed, well nourished. HEENT: Pupils are round and equally reacting to light. EOMI. No scleral icterus. No conjunctival pallor. Normocephalic, atraumatic. No pharyngeal erythema. No thyromegaly. CARDIOVASCULAR: S1 and S2 present. No murmurs, rubs, or gallops. PULMONARY: Chest is clear to auscultation, no wheezing or crackles. ABDOMEN: Soft, nontender, nondistended, normoactive bowel sounds. No palpable organomegaly. Turcios catheter in place MUSCULOSKELETAL: No joint swelling or deformity. EXTREMITIES: No cyanosis, clubbing, or pedal edema. NEUROLOGICAL: Gross neurological examination did not reveal any focal deficits. SKIN: No rashes. - Labs CBC & Chem 7: 04/25/19 06:05 04/25/19 06:05 Labs: Abnormal Lab Results - Last 24 Hours (Table) 04/25/19 04/25/19 Range/Units 06:05 06:05 RBC 3.44 L (4.30-5.90) m/uL Hgb 10.3 L (13.0-17.5) gm/dL Hct 31.0 L (39.0-53.0) % BUN 38 H (9-20) mg/dL Creatinine 3.36 H (0.66-1.25) mg/dL Assessment and Plan Assessment: Abnormal EKG with ST depression in the anterior lateral metastases and to lesser degree in the inferior leads. The view of elevated troponin Acute systolic congestive heart failure. Ejection fraction 30-35% Acute kidney injury, versus chronic kidney disease Bilateral hydronephrosis secondary to urinary to tension, mostly related to enlarged prostate COPD, not in acute exacerbation Nicotine dependence Plan: this is a pleasant 79 years old male who presents with acute kidney injury and possible acute coronary artery disease. Cardiology recommended cardiac cath down the road which is on hold because of his renal system problem.. urology input is appreciated, patient was started on Flomax. Keep monitoring for now. Hospitality Services Manager recommended to continue with IV fluids. Continue with nicotine patch. Continue with heparin drip and aspirin. Follow-up creatinine level. Labs and medication were reviewed.. Continue same treatment. Continue with symptomatic treatment. . Monitor lytes and vitals. DVT and GI prophylaxis. Further recommendations of the clinical course of the patient DVT prophylaxis: heparin GI Prophylaxis: Pepcid Prognosis is guarded
--- NOTE | 2019-04-25 14:10 | P.PN ---
Subjective Progress Note Date: 04/25/19 The patient is a 79-year-old male who has not followed with a physician regularly and over 50 years. He presented to [facility] with new onset of fatigue as well as shortness of breath with minimal exertion. At [facility] his baseline blood work showed elevated kidney function as well as mi ldly elevated troponins. He was found to have a urinary obstruction, which is currently being treated by urology. Today he is resting comfortably in bed. He denies any chest pain, chest pressure, palpitations, dizziness, or vertigo. He states he has been up walking to and from the bathroom without issue. GENERAL: Well-appearing, well-nourished and in no acute distress. NECK: Supple without JVD or thyromegaly. LUNGS: Breath sounds clear to auscultation bilaterally. Respiration equal and unlabored. No wheezes, rales or rhonchi. HEART: Heart rate irregular without murmurs, rubs or gallops. S1 and S2 heard. EXTREMITIES: Normal range of motion, no edema. No clubbing or cyanosis. Peripheral pulses intact and strong. Echocardiogram shows LV function of 35% with moderate mitral regurgitation, moderate tricuspid regurgitation and severe pulmonary hypertension. Labs: WBC 6.3, hemoglobin 10.3, hematocrit 31.0, sodium 138, potassium 4.0, BUN 38, creatinine 3.36, GFR 17, BNP 17,000, LDL 135 Assessment: #1 acute renal failure secondary to urinary obstruction #2 acute non-ST elevation myocardial infarction #3 cardiomyopathy, unspecified #4 severe pulmonary hypertension #6 hypertension #7 dyslipidemia Plan: Start atorvastatin 40 mg daily. Coronary angiography will be recommended once kidney function has improved. Maximal medical treatment at this time. Objective - Vital Signs Vital signs: Vital Signs Temp 97.9 F 04/25/19 11:26 Pulse 65 04/25/19 11:26 Resp 22 04/25/19 11:26 BP 136/68 04/25/19 11:26 Pulse Ox 97 04/25/19 11:26 Intake & Output 04/24/19 04/25/19 04/25/19 18:59 06:59 18:59 Intake Total 859.969 600 450 Output Total 1200 700 Balance -340.031 -100 450 Weight 66.6 kg 60.9 kg Intake: Intake, IV Titration 139.969 Amount Heparin Sod,Pork in 0.45% 139.969 NaCl 25,000 unit In 0.45 % NaCl 1 250ml.bag @ 12 UNITS/KG/HR 7.893 mls/hr IV .Q24H [facility] Rx#: [id number] Oral 720 600 450 Output: Urine 1200 700 Other: Voiding Method Indwelling Catheter Indwelling Catheter Indwelling Catheter # Voids 1 # Bowel Movements 0 - Labs CBC & Chem 7: 04/25/19 06:05 04/25/19 06:05 Labs: Abnormal Lab Results - Last 24 Hours (Table) 04/25/19 04/25/19 Range/Units 06:05 06:05 RBC 3.44 L (4.30-5.90) m/uL Hgb 10.3 L (13.0-17.5) gm/dL Hct 31.0 L (39.0-53.0) % BUN 38 H (9-20) mg/dL Creatinine 3.36 H (0.66-1.25) mg/dL
[2019-04-25] MEDS: LATANOPROST 0.005% OPHTH DROPS 2.5 ML BTL BOTH EYES SCH (20:30)
[2019-04-26 06:30] LABS: Basophils % (A) 1 %; Eosinophils # (A) 0.2 k/uL (0-0.7); Eosinophils % (A) 4 %; HCT 30.3 % (39.0-53.0); HGB 10.3 gm/dL (13.0-17.5); Lymphocytes # (A) 1.7 k/uL (1.0-4.8); Lymphocytes % (A) 31 %; MCH 30.6 pg (25.0-35.0); MCHC 34.1 g/dL (31.0-37.0); MCV 89.9 fL (80.0-100.0); Mean Platelet Volume 7.9; Monocytes # (A) 0.4 k/uL (0-1.0); Monocytes % (A) 7 %; Neutrophils # (A) 3.1 k/uL (1.3-7.7); Neutrophils % (A) 55 %; Platelet Count 189 k/uL (150-450); RBC 3.37 m/uL (4.30-5.90); RDW 15.5 % (11.5-15.5); WBC 5.6 k/uL (3.8-10.6)
[2019-04-26 06:36] LABS: Calcium 8.4 mg/dL (8.4-10.2); Magnesium 1.8 mg/dL (1.6-2.3); Potassium 4.4 mmol/L (3.5-5.1)
[2019-04-26] MEDS: HEPARIN SODIUM,PORCINE 5,000 UNIT/ML 1 ML VIAL SQ SCH ×2 (08:56→20:27)
[2019-04-26] MEDS: ATORVASTATIN 40 MG TAB PO SCH (08:57)
[2019-04-26] MEDS: hydrALAZINE HCL 25 MG TAB PO SCH ×3 (08:57→20:27)
[2019-04-26] MEDS: METOPROLOL TARTRATE 25 MG TAB PO SCH ×2 (08:57→20:27)
[2019-04-26] MEDS: TAMSULOSIN 0.4 MG CAP.ER.24H PO SCH (08:57)
[2019-04-26] MEDS: ASPIRIN 325 MG TAB PO SCH (08:57)
--- NOTE | 2019-04-26 09:53 | P.PN ---
Subjective Patient is seen in follow-up for acute kidney injury. Unknown baseline renal function. Creatinine was 3.77 on admission and is 3.29 today. He was noted to have urinary retention and currently has a Turcios catheter in place. He is nonoliguric. Oral intake is good. No vomiting or diarrhea. No chest pain or shortness of breath. Vital signs are stable. General: The patient appeared well nourished and normally developed. HEENT: Head exam is unremarkable. Neck is without jugular venous distension. LUNGS: Lungs are clear to auscultation and percussion. Breath sounds decreased. HEART: Rate and Rhythm are regular. First and second heart sounds normal. No murmurs, rubs or gallops. ABDOMEN: Abdominal exam reveals normal bowel sounds. Non-tender and non- distended. No evidence of peritonitis. EXTREMITITES: No clubbing, cyanosis, or edema. Objective - Vital Signs Vital signs: Vital Signs Temp 98.3 F 04/26/19 08:00 Pulse 72 04/26/19 08:00 Resp 20 04/26/19 08:00 BP 156/71 04/26/19 08:00 Pulse Ox 95 04/26/19 08:00 Intake & Output 04/25/19 04/26/19 04/26/19 18:59 06:59 18:59 Intake Total 690 240 Output Total 600 1000 Balance 90 -1000 240 Weight 60.8 kg Intake: Oral 690 240 Output: Urine 600 1000 Other: Voiding Method Indwelling Catheter Indwelling Catheter # Voids 800 # Bowel Movements 0 - Labs CBC & Chem 7: 04/26/19 06:07 04/26/19 06:07 Labs: Abnormal Lab Results - Last 24 Hours (Table) 04/26/19 04/26/19 Range/Units 06:07 06:07 RBC 3.37 L (4.30-5.90) m/uL Hgb 10.3 L (13.0-17.5) gm/dL Hct 30.3 L (39.0-53.0) % Chloride 108 H (98-107) mmol/L BUN 42 H (9-20) mg/dL Creatinine 3.29 H (0.66-1.25) mg/dL Assessment and Plan Plan: Assessment: 1. Acute kidney injury secondary to obstructive uropathy and urinary retention. Creatinine was 3.77 on admission and is 3.29 today. Unknown baseline renal function. UA is benign. Left kidney noted to be somewhat atrophic. 2. Urinary retention status post Turcios catheter placement. 3. Moderate bilateral hydronephrosis. Urology following. 4. Benign hypertension. Stable. 5. Acute systolic CHF with ejection fraction of 30-35% with moderate aortic regurgitation, moderate mitral regurgitation and moderate tricuspid regurgitation. 6. Severe pulmonary hypertension. Plan: Hep-Lock IV fluids. Maintain Turcios catheter. Patient will need to follow-up outpatient in the next 1-2 weeks. Will need to establish his baseline renal function.
--- NOTE | 2019-04-26 11:11 | P.PN ---
Subjective Progress Note Date: 04/26/19 Principal diagnosis: NSTEMI The patient is a 79-year-old male who has not followed with a physician regularly and over 50 years. He presented to [facility] with new onset o f fatigue as well as shortness of breath with minimal exertion. At [facility] his baseline blood work showed elevated kidney function as well as mildly elevated troponins. He was found to have a urinary obstruction, which is currently being treated by urology. 04/25/18 Today he is resting comfortably in bed. He denies any chest pain, chest pressure, palpitations, dizziness, or vertigo. He states he has been up walking to and from the bathroom without issue. 04/26/19 he states he continues to do well. He is asymptomatic neck from the cardiac standpoint. He states he's been up walking the halls without issue. GENERAL: Well-appearing, well-nourished and in no acute distress. NECK: Supple without JVD or thyromegaly. LUNGS: Breath sounds clear to auscultation bilaterally. Respiration equal and unlabored. No wheezes, rales or rhonchi. HEART: Heart rate irregular without murmurs, rubs or gallops. S1 and S2 heard. EXTREMITIES: Normal range of motion, no edema. No clubbing or cyanosis. Peripheral pulses intact and strong. Echocardiogram shows LV function of 35% with moderate mitral regurgitation, moderate tricuspid regurgitation and severe pulmonary hypertension. Labs: WBC 5.6, hemoglobin 10.3, hematocrit 30.3, sodium 139, potassium 4.4, magnesium 1.8, BUN 42, Creatinine improved to 3.29, BNP 9500 Assessment: #1 acute renal failure secondary to urinary obstruction #2 acute non-ST elevation myocardial infarction #3 cardiomyopathy, unspecified #4 severe pulmonary hypertension #6 hypertension #7 dyslipidemia Plan: Continue current medication regimen. Coronary angiography will be recommended once kidney function has improved. Maximal medical treatment at this time. Objective - Vital Signs Vital signs: Vital Signs Temp 98.3 F 04/26/19 08:00 Pulse 72 04/26/19 08:00 Resp 20 04/26/19 08:00 BP 156/71 04/26/19 08:00 Pulse Ox 95 04/26/19 08:00 Intake & Output 04/25/19 04/26/19 04/26/19 18:59 06:59 18:59 Intake Total 690 240 Output Total 600 1000 Balance 90 -1000 240 Weight 60.8 kg Intake: Oral 690 240 Output: Urine 600 1000 Other: Voiding Method Indwelling Catheter Indwelling Catheter Indwelling Catheter # Voids 800 # Bowel Movements 0 - Labs CBC & Chem 7: 04/26/19 06:07 04/26/19 06:07 Labs: Abnormal Lab Results - Last 24 Hours (Table) 04/26/19 04/26/19 Range/Units 06:07 06:07 RBC 3.37 L (4.30-5.90) m/uL Hgb 10.3 L (13.0-17.5) gm/dL Hct 30.3 L (39.0-53.0) % Chloride 108 H (98-107) mmol/L BUN 42 H (9-20) mg/dL Creatinine 3.29 H (0.66-1.25) mg/dL
--- NOTE | 2019-04-26 13:13 | P.PN ---
Subjective This is a pleasant 79 years old male with no significant past medical history. He follow-up with Dr. Alvarado but patient states he has not been in the doctor for 70 years. He smokes about half pack per day but he quit about 5 days ago for dyspnea. He went to see Dr. Alvarado couple days ago for the same and he asked him to come to emergency room, where he wanted to [facility] and from there he was transferred to [facility]. Patient states he has some abdominal bloating but he denies chest pain. No coughing. No headache. No dizziness. No change in urine or bowel habits. No abdominal pain. No nausea vomiting. No change in urine or bowel habits. No fever. He denies alcohol or illicit tracts. Vital showing hypertension with 177/84, saturating 99% on 2 L oxygen. [place] test looks stable. Test at [facility] showing EKG with sinus rhythm at [address] depression in the anterolateral lid, as well to lesser degree in the inferior leads. Chest x-ray: No acute process, he has hyperinflation compatible with COPDPro-BMP is 13-900, CBC is unremarkable except for mild anemia. Sodium and potassium are within normal limits, however creatinine is elevated at 3.9, liver enzymes were not elevated. Magnesium is 2.0, INR is 1.0, CPK 64, troponins are mildly elevated at 0.081 and 0.081 which are above reference range at [place] of 0.030. In the emergency room patient received 1 L of Normosol and was started on heparin drip. As well as aspirin 04/24/2019 Patient is awake and alert with no chest pain or dyspnea. No abdominal pain. No dizziness. He remains on heparin drip for a possible non-STEMI ,He was able to void yesterday however however renal ultrasounds showing bilateral hydronephrosis, bladder scan showed more than a liter of urinary retention, Turcios catheter has to be placed overnight and 2 L of urine drained. This morning urine is pinkish in color. However patient denies suprapubic or flank pain. Flomax was added. Urine analysis is negative. Creatinine today is 3.7 patient is also to be evaluated by hand tacker. His creatinine is 0.07 and 0.06. Patient has had blood pressure and he was started on metoprolol 50 mg twice a day. EKG showing possible atrial fibrillation 04/25/2019 Patient is awake and alert with no other new complaints. No chest pain or dyspnea. He still have the Turcios catheter with urine showing hematuria. Vitas looks stable. no significant change however there is drop in the hemoglobin from 12.1 down to 10.3. Heparin is on hold. Stress of BMP is unremarkable. ProBNP is significantly improved from 32,000 down to 1700. Creatinine still at 3.3 with slight improvement down from 3.7. Patient to continue on gentle hydration with normal saline at 50 mg or as per sales agent food vending service recommendation. 04/26/2019 Patient clinically the same. With no chest pain or dyspnea. His Turcios catheter today showing clear yellow urine with hematuria resolving. Vitals are stable. Labs reviewed it looks stable. His creatinine is slightly trending down to 3.29 which is not much difference from yesterday. Outsole Cementer on the case as well as urologist. Patient remains on gentle hydration. Turcios catheter still in place. Cardiology also recommended cardiac cath when his most stable regarding his renal problem. Patient and family at bedside are aware of the patient problems and management plan and all their questions were answered to their satisfaction. Objective - Vital Signs Vital signs: Vital Signs Temp 98 F 04/26/19 11:47 Pulse 63 04/26/19 11:47 Resp 16 04/26/19 11:47 BP 139/69 04/26/19 11:47 Pulse Ox 96 04/26/19 11:47 Intake & Output 04/25/19 04/26/19 04/26/19 18:59 06:59 18:59 Intake Total 690 240 Output Total 600 1000 Balance 90 -1000 240 Weight 60.8 kg Intake: Oral 690 240 Output: Urine 600 1000 Other: Voiding Method Indwelling Catheter Indwelling Catheter Indwelling Catheter # Voids 800 # Bowel Movements 0 - Exam GENERAL: The patient is alert and oriented x3, not in any acute distress. Well developed, well nourished. HEENT: Pupils are round and equally reacting to light. EOMI. No scleral icterus. No conjunctival pallor. Normocephalic, atraumatic. No pharyngeal erythema. No thyromegaly. CARDIOVASCULAR: S1 and S2 present. No murmurs, rubs, or gallops. PULMONARY: Chest is clear to auscultation, no wheezing or crackles. ABDOMEN: Soft, nontender, nondistended, normoactive bowel sounds. No palpable organomegaly. Turcios catheter in place MUSCULOSKELETAL: No joint swelling or deformity. EXTREMITIES: No cyanosis, clubbing, or pedal edema. NEUROLOGICAL: Gross neurological examination did not reveal any focal deficits. SKIN: No rashes. - Labs CBC & Chem 7: 04/26/19 06:07 04/26/19 06:07 Labs: Abnormal Lab Results - Last 24 Hours (Table) 04/26/19 04/26/19 Range/Units 06:07 06:07 RBC 3.37 L (4.30-5.90) m/uL Hgb 10.3 L (13.0-17.5) gm/dL Hct 30.3 L (39.0-53.0) % Chloride 108 H (98-107) mmol/L BUN 42 H (9-20) mg/dL Creatinine 3.29 H (0.66-1.25) mg/dL Assessment and Plan Assessment: Abnormal EKG with ST depression in the anterior lateral metastases and to lesser degree in the inferior leads. The view of elevated troponin Acute systolic congestive heart failure. Ejection fraction 30-35% Acute kidney injury, versus chronic kidney disease Bilateral hydronephrosis secondary to urinary to tension, mostly related to enlarged prostate COPD, not in acute exacerbation Nicotine dependence Plan: this is a pleasant 79 years old male who presents with acute kidney injury and possible acute coronary artery disease. Cardiology recommended cardiac cath down the road which is on hold because of his renal system problem.. urology input is appreciated, patient was started on Flomax. Keep monitoring for now. Outsole Cementer recommended to continue with IV fluids. Continue with nicotine patch. Continue with heparin drip and aspirin. Follow-up creatinine level. Labs and medication were reviewed.. Continue same treatment. Continue with s ymptomatic treatment. . Monitor lytes and vitals. DVT and GI prophylaxis. Further recommendations of the clinical course of the patient DVT prophylaxis: heparin GI Prophylaxis: Pepcid Prognosis is guarded
[2019-04-26] MEDS: SODIUM CHLORIDE 0.9% 1,000 ML IV SCH (19:57)
[2019-04-26] MEDS: LATANOPROST 0.005% OPHTH DROPS 2.5 ML BTL BOTH EYES SCH (20:54)
[2019-04-27 06:32] LABS: Calcium 8.6 mg/dL (8.4-10.2); Magnesium 1.8 mg/dL (1.6-2.3); Potassium 4.7 mmol/L (3.5-5.1)
[2019-04-27] MEDS: ASPIRIN 325 MG TAB PO SCH (09:27)
[2019-04-27] MEDS: hydrALAZINE HCL 25 MG TAB PO SCH (09:27)
[2019-04-27] MEDS: TAMSULOSIN 0.4 MG CAP.ER.24H PO SCH (09:27)
[2019-04-27] MEDS: ATORVASTATIN 40 MG TAB PO SCH (09:27)
[2019-04-27] MEDS: METOPROLOL TARTRATE 25 MG TAB PO SCH ×2 (09:27→20:26)
[2019-04-27] MEDS: HEPARIN SODIUM,PORCINE 5,000 UNIT/ML 1 ML VIAL SQ SCH ×2 (09:27→20:26)
[2019-04-27] MEDS ORDERED: ISOSORBIDE MONONITRATE ER 30 MG TAB.ER.24H PO STA (09:59)
--- NOTE | 2019-04-27 10:06 | P.PN ---
Subjective Patient is seen in follow-up for acute kidney injury. Unknown baseline renal function. Creatinine was 3.77 on admission and is 3.13 today. He was noted to have urinary retention and currently has a Turcios catheter in place. He is nonoliguric. Oral intake is good. No vomiting or diarrhea. No chest pain or shortness of breath. He remains off IV fluids. Vital signs are stable. General: The patient appeared well nourished and normally developed. HEENT: Head exam is unremarkable. Neck is without jugular venous distension. LUNGS: Lungs are clear to auscultation and percussion. Breath sounds decreased. HEART: Rate and Rhythm are regular. First and second heart sounds normal. No murmurs, rubs or gallops. ABDOMEN: Abdominal exam reveals normal bowel sounds. Non-tender and non- distended. No evidence of peritonitis. EXTREMITITES: No clubbing, cyanosis, or edema. Objective - Vital Signs Vital signs: Vital Signs Temp 97.6 F 04/27/19 08:00 Pulse 76 04/27/19 08:00 Resp 18 04/27/19 08:00 BP 151/73 04/27/19 08:00 Pulse Ox 96 04/27/19 08:00 Intake & Output 04/26/19 04/27/19 04/27/19 18:59 06:59 18:59 Intake Total 840 Output Total 600 1400 300 Balance 240 -1400 -300 Weight 61.5 kg Intake: Oral 840 Output: Urine 600 1400 300 Uretheral (Turcios) 950 300 Other: Voiding Method Indwelling Catheter Indwelling Catheter Indwelling Catheter - Labs CBC & Chem 7: 04/26/19 06:07 04/27/19 05:45 Labs: Abnormal Lab Results - Last 24 Hours (Table) 04/27/19 Range/Units 05:45 BUN 41 H (9-20) mg/dL Creatinine 3.13 H (0.66-1.25) mg/dL Assessment and Plan Plan: Assessment: 1. Acute kidney injury secondary to obstructive uropathy and urinary retention. Creatinine was 3.77 on admission and is 3.13 today. Unknown baseline renal function. UA is benign. Left kidney noted to be somewhat atrophic. 2. Urinary retention status post Turcios catheter placement. 3. Moderate bilateral hydronephrosis. Urology following. 4. Benign hypertension. Stable. 5. Acute systolic CHF with ejection fraction of 30-35% with moderate aortic regurgitation, moderate mitral regurgitation and moderate tricuspid regurgitation. 6. Severe pulmonary hypertension. Plan: Maintain Turcios catheter. Patient will need to follow-up outpatient in the next 1-2 weeks. Will need to establish his baseline renal function. Stable to be discharged home from nephrology standpoint.
--- NOTE | 2019-04-27 13:13 | P.PN ---
Subjective This is a pleasant 79 years old male with no significant past medical history. He follow-up with Dr. Alvarado but patient states he has not been in the doctor for 70 years. He smokes about half pack per day but he quit about 5 days ago for dyspnea. He went to see Dr. Alvarado couple days ago for the same and he asked him to come to emergency room, where he wanted to [facility] and from there he was transferred to [facility]. Patient states he has some abdominal bloating but he denies chest pain. No coughing. No headache. No dizziness. No change in urine or bowel habits. No abdominal pain. No nausea vomiting. No change in urine or bowel habits. No fever. He denies alcohol or illicit tracts. Vital showing hypertension with 177/84, saturating 99% on 2 L oxygen. [place] test looks stable. Test at [facility] showing EKG with sinus rhythm at [address] depression in the anterolateral lid, as well to lesser degree in the inferior leads. Chest x-ray: No acute process, he has hyperinflation compatible with COPDPro-BMP is 13-900, CBC is unremarkable except for mild anemia. Sodium and potassium are within normal limits, however creatinine is elevated at 3.9, liver enzymes were not elevated. Magnesium is 2.0, INR is 1.0, CPK 64, troponins are mildly elevated at 0.081 and 0.081 which are above reference range at [place] of 0.030. In the emergency room patient received 1 L of Normosol and was started on heparin drip. As well as aspirin 04/24/2019 Patient is awake and alert with no chest pain or dyspnea. No abdominal pain. No dizziness. He remains on heparin drip for a possible non-STEMI ,He was able to void yesterday however however renal ultrasounds showing bilateral hydronephrosis, bladder scan showed more than a liter of urinary retention, Turcios catheter has to be placed overnight and 2 L of urine drained. This morning urine is pinkish in color. However patient denies suprapubic or flank pain. Flomax was added. Urine analysis is negative. Creatinine today is 3.7 patient is also to be evaluated by rn house supervisor. His creatinine is 0.07 and 0.06. Patient has had blood pressure and he was started on metoprolol 50 mg twice a day. EKG showing possible atrial fibrillation 04/25/2019 Patient is awake and alert with no other new complaints. No chest pain or dyspnea. He still have the Turcios catheter with urine showing hematuria. [place] looks stable. no significant change however there is drop in the hemoglobin from 12.1 down to 10.3. Heparin is on hold. Stress of BMP is unremarkable. ProBNP is significantly improved from 32,000 down to 1700. Creatinine still at 3.3 with slight improvement down from 3.7. Patient to continue on gentle hydration with normal saline at 50 mg or as per animal cruelty investigator recommendation. 04/26/2019 Patient clinically the same. With no chest pain or dyspnea. His Turcios catheter today showing clear yellow urine with hematuria resolving. Vitals are stable. Labs reviewed it looks stable. His creatinine is slightly trending down to 3.29 which is not much difference from yesterday. Spray Crew on the case as well as urologist. Patient remains on gentle hydration. Turcios catheter still in place. Cardiology also recommended cardiac cath when his most stable regarding his renal problem. Patient and family at bedside are aware of the patient problems and management plan and all their questions were answered to their satisfaction. 04/27/2019 Patient with no chest pain or dyspnea. No abdominal pain. Turcios catheter still in place and is showing clear urine. Patient is afebrile and blood pressure 151/73. Left showing creatinine at 3.23. Rest of last looks stable. Patient of fluids were stopped. Spray Crew recommendation, maintain Turcios catheter and patient. He will need nephrology Follow-up in 1-2 weeks. Discussed the case with rn house supervisor team, we will keep monitoring for 1 more day. Discussed with patient and family at bedside and all their questions were answered to their satisfaction, patient agrees to stay in the hospital for now. Objective - Vital Signs Vital signs: Vital Signs Temp 97.6 F 04/27/19 08:00 Pulse 76 04/27/19 08:00 Resp 18 04/27/19 08:00 BP 151/73 04/27/19 08:00 Pulse Ox 96 04/27/19 08:00 Intake & Output 04/26/19 04/27/19 04/27/19 18:59 06:59 18:59 Intake Total 840 Output Total 600 1400 300 Balance 240 -1400 -300 Weight 61.5 kg Intake: Oral 840 Output: Urine 600 1400 300 Uretheral (Turcios) 950 300 Other: Voiding Method Indwelling Catheter Indwelling Catheter Indwelling Catheter - Exam GENERAL: The patient is alert and oriented x3, not in any acute distress. Well developed, well nourished. HEENT: Pupils are round and equally reacting to light. EOMI. No scleral icterus. No conjunctival pallor. Normocephalic, atraumatic. No pharyngeal erythema. No thyromegaly. CARDIOVASCULAR: S1 and S2 present. No murmurs, rubs, or gallops. PULMONARY: Chest is clear to auscultation, no wheezing or crackles. ABDOMEN: Soft, nontender, nondistended, normoactive bowel sounds. No palpable organomegaly. Turcios catheter in place MUSCULOSKELETAL: No joint swelling or deformity. EXTREMITIES: No cyanosis, clubbing, or pedal edema. NEUROLOGICAL: Gross neurological examination did not reveal any focal deficits. SKIN: No rashes. - Labs CBC & Chem 7: 04/26/19 06:07 04/27/19 05:45 Labs: Abnormal Lab Results - Last 24 Hours (Table) 04/27/19 Range/Units 05:45 BUN 41 H (9-20) mg/dL Creatinine 3.13 H (0.66-1.25) mg/dL Assessment and Plan Assessment: Abnormal EKG with ST depression in the anterior lateral metastases and to lesser degree in the inferior leads. The view of elevated troponin Acute systolic congestive heart failure. Ejection fraction 30-35% Acute kidney injury, versus chronic kidney disease Bilateral hydronephrosis secondary to urinary to tension, mostly related to enlarged prostate COPD, not in acute exacerbation Nicotine dependence Plan: this is a pleasant 79 years old male who presents with acute kidney injury and possible acute coronary artery disease. Cardiology recommended cardiac cath down the road which is on hold because of his renal system problem.. urology input is appreciated, patient was started on Flomax. Hold IV fluids. Keep monitoring for now. Spray Crew recommended outpatient follow-up in 1-2 weeks. Continue with nicotine patch. Continue with heparin drip and aspirin. Follow- up creatinine level. Labs and medication were reviewed.. Continue same treatment. Continue with symptomatic treatment. . Monitor lytes and vitals. DVT and GI prophylaxis. Further recommendations of the clinical course of the patient DVT prophylaxis: heparin GI Prophylaxis: Pepcid Prognosis is guarded
--- NOTE | 2019-04-27 14:47 | P.PN ---
Subjective Progress Note Date: 04/27/19 This is a pleasant 79-year-old gentleman did not see a physician in more than 50 years with unknown past medical history [facility] off abnormal kidney function and elevated creatinine. For the last few weeks, the patient has not been feeding well. He has been feeling tired and fatigued. He was also experiencing lately symptoms of shortness of breath even with minimal exertion. No chest pain or chest discomfort. He presented to the emergency room at [facility] where a baseline blood work was performed including creatinine and that came in to be elevated and the patient was transferred here for further evaluation. He was found to have obstructive uropathy and he was seen by a urologist and a Turcios catheter was placed. We involved in his care because off abnormal cardiac enzymes. The troponin is elevated. The patient did not have any symptoms of chest pain or chest discomfort, but he was experiencing shortness of breath with minimal exertion lately. No dizziness or lightheadedness, heart racing or flut tering, or syncope. He underwent an echocardiogram which revealed severe cardiomyopathy with EF between 30-35% with evidence of wall motion abnormalities concerning for severe underlying coronary artery disease, moderate MR, moderate TR, severe pulmonary hypertension.. I did review the EKG from [facility] and that revealed sinus mechanism with sinus tachycardia and evidence off T-wave inversion in the inferolateral leads quite concerning for severe underlying coronary artery disease. Currently the patient is not experiencing any symptoms of chest pain or chest discomfort. Blood pressure 150/70 with a heart rate in the 70s, 96% on room air. Sodium 139, potassium 4.7, BUN 41 and creatinine 3.1. Objective - Vital Signs Vital signs: Vital Signs Temp 97.6 F 04/27/19 08:00 Pulse 76 04/27/19 08:00 Resp 18 04/27/19 08:00 BP 151/73 04/27/19 08:00 Pulse Ox 96 04/27/19 08:00 Intake & Output 04/26/19 04/27/19 04/27/19 18:59 06:59 18:59 Intake Total 840 Output Total 600 1400 300 Balance 240 -1400 -300 Weight 61.5 kg Intake: Oral 840 Output: Urine 600 1400 300 Uretheral (Turcios) 950 300 Other: Voiding Method Indwelling Catheter Indwelling Catheter Indwelling Catheter - Exam GENERAL: Well-appearing, well-nourished and in no acute distress. NECK: Supple without JVD or thyromegaly. LUNGS: Breath sounds clear to auscultation bilaterally. Respiration equal and unlabored. No wheezes, rales or rhonchi. HEART: Heart rate irregular without murmurs, rubs or gallops. S1 and S2 heard. EXTREMITIES: Normal range of motion, no edema. No clubbing or cyanosis. Peripheral pulses intact and strong. - Labs CBC & Chem 7: 04/26/19 06:07 04/27/19 05:45 Labs: Abnormal Lab Results - Last 24 Hours (Table) 04/27/19 Range/Units 05:45 BUN 41 H (9-20) mg/dL Creatinine 3.13 H (0.66-1.25) mg/dL Assessment and Plan Plan: Assessment:and Plan #1 acute renal failure secondary to urinary obstruction #2 acute non-ST elevation myocardial infarction #3 cardiomyopathy, unspecified #4 severe pulmonary hypertension #6 hypertension #7 dyslipidemia Plan We will increase the dose of hydralazine and Imdur for more optimal blood pressure control. Patient will require coronary angiography at some point once the renal function has improved. At this point in time continue maximal medical therapy. DNP note has been reviewed, I agree with a documented findings and plan of care. Patient was seen and examined.
[2019-04-27] MEDS: hydrALAZINE HCL 50 MG TAB PO SCH ×2 (15:56→20:26)
[2019-04-27] MEDS: LATANOPROST 0.005% OPHTH DROPS 2.5 ML BTL BOTH EYES SCH (20:25)
[2019-04-28 06:53] LABS: Calcium 8.8 mg/dL (8.4-10.2); Potassium 4.7 mmol/L (3.5-5.1)
[2019-04-28] MEDS ORDERED: ASPIRIN 81 MG PO SCH (09:00)
[2019-04-28] MEDS ORDERED: ISOSORBIDE MONONITRATE ER 30 MG TAB.ER.24H PO SCH (09:00)
[2019-04-28] MEDS: TAMSULOSIN 0.4 MG CAP.ER.24H PO SCH (09:25)
[2019-04-28] MEDS: hydrALAZINE HCL 50 MG TAB PO SCH ×2 (09:25→16:07)
[2019-04-28] MEDS: ATORVASTATIN 40 MG TAB PO SCH (09:25)
[2019-04-28] MEDS: METOPROLOL TARTRATE 25 MG TAB PO SCH (09:25)
[2019-04-28] MEDS: HEPARIN SODIUM,PORCINE 5,000 UNIT/ML 1 ML VIAL SQ SCH (09:26)
[2019-04-28 11:41] VITALS: BMI 21.6
--- NOTE | 2019-04-28 12:02 | P.PN ---
Subjective Patient is seen in follow-up for acute kidney injury. Unknown baseline renal function. Renal function is gradually improving. Creatinine was 3.77 on admission and is 2.95 today. He was noted to have urinary retention and currently has a Turcios catheter in place. He is nonoliguric. Oral intake is good. No vomiting or diarrhea. No chest pain or shortness of breath. He remains off IV fluids. Vital signs are stable. General: The patient appeared well nourished and normally developed. HEENT: Head exam is unremarkable. Neck is without jugular venous distension. LUNGS: Lungs are clear to auscultation and percussion. Breath sounds decreased. HEART: Rate and Rhythm are regular. First and second heart sounds normal. No murmurs, rubs or gallops. ABDOMEN: Abdominal exam reveals normal bowel sounds. Non-tender and non- distended. No evidence of peritonitis. EXTREMITITES: No clubbing, cyanosis, or edema. Objective - Vital Signs Vital signs: Vital Signs Temp 98.5 F 04/28/19 08:00 Pulse 82 04/28/19 08:00 Resp 16 04/28/19 08:00 BP 157/70 04/28/19 08:00 Pulse Ox 97 04/28/19 08:00 Intake & Output 04/27/19 04/28/19 04/28/19 18:59 06:59 18:59 Intake Total 840 980 180 Output Total 800 1400 Balance 40 -420 180 Weight 60.8 kg 60.8 kg Intake: IV 20 Invasive Line 1 20 Oral 840 960 180 Output: Urine 800 1400 Other: Voiding Method Indwelling Catheter Indwelling Catheter Indwelling Catheter - Labs CBC & Chem 7: 04/26/19 06:07 04/28/19 05:50 Labs: Abnormal Lab Results - Last 24 Hours (Table) 04/28/19 Range/Units 05:50 BUN 45 H (9-20) mg/dL Creatinine 2.95 H (0.66-1.25) mg/dL Assessment and Plan Plan: Assessment: 1. Acute kidney injury secondary to obstructive uropathy and urinary retention. Creatinine was 3.77 on admission and is 2.95 today. Unknown baseline renal function. UA is benign. Left kidney noted to be somewhat atrophic. 2. Urinary retention status post Turcios catheter placement. 3. Moderate bilateral hydronephrosis. Urology following. 4. Benign hypertension. Stable. 5. Acute systolic CHF with ejection fraction of 30-35% with moderate aortic regurgitation, moderate mitral regurgitation and moderate tricuspid regurgitati on. 6. Severe pulmonary hypertension. Plan: Maintain Turcios catheter. Patient will need to follow-up outpatient in the next 1-2 weeks. Will need to establish his baseline renal function. Stable to be discharged home from nephrology standpoint.
[2019-04-28 12:03] VITALS: BP 121/57; PULSE 65; RESP 18; TEMP 97.9
--- NOTE | 2019-04-28 14:54 | P.PN ---
Subjective Progress Note Date: 04/28/19 This is a pleasant 79-year-old gentleman did not see a physician in more than 50 years with unknown past medical history was transferred from [facility] to [facility] for further evaluation off abnormal kidney function and elevated creatinine. For the last few weeks, the patient has not been feeding well. He has been feeling tired and fatigued. He was also experiencing lately symptoms of shortness of breath even with minimal exertion. No chest pain or chest discomfort. He presented to the emergency room at [facility] where a baseline blood work was performed including creatinine and that came in to be elevated and the patient was transferred here for further evaluation. He was found to have obstructive uropathy and he was seen by a urologist and a Turcios catheter was placed. We involved in his care because off abnormal cardiac enzymes. The troponin is elevated. The patient did not have any symptoms of chest pain or chest discomfort, but he was experiencing shortness of breath with minimal exertion lately. No dizziness or lightheadedness, heart racing or flut tering, or syncope. He underwent an echocardiogram which revealed severe cardiomyopathy with EF between 30-35% with evidence of wall motion abnormalities concerning for severe underlying coronary artery disease, moderate MR, moderate TR, severe pulmonary hypertension.. I did review the EKG from [facility] and that revealed sinus mechanism with sinus tachycardia and evidence off T-wave inversion in the inferolateral leads quite concerning for severe underlying coronary artery disease. Currently the patient is not experiencing any symptoms of chest pain or chest discomfort. Blood pressure 150/70 with a heart rate in the 70s, 96% on room air. Sodium 139, potassium 4.7, BUN 41 and creatinine 3.1. 04/28/2019 Patient seen and examined this morning, breathing is significantly improved from admission here. I pressure this morning 120/60 with a heart rate in the 60s, 97.9 temperature, 95% on room air. Sodium 137, potassium 4.7, BUN 45 and creatinine 2.9. Objective - Vital Signs Vital signs: Vital Signs Temp 97.9 F 04/28/19 12:00 Pulse 65 04/28/19 12:00 Resp 18 04/28/19 12:00 BP 121/57 04/28/19 12:00 Pulse Ox 95 04/28/19 12:00 Intake & Output 0804/28/19 04/28/19 18:59 06:59 18:59 Intake Total 840 980 180 Output Total 800 1400 1400 Balance 40 -420 -1220 Weight 60.8 kg 60.8 kg Intake: IV 20 Invasive Line 1 20 Oral 840 960 180 Output: Urine 800 1400 1400 Other: Voiding Method Indwelling Catheter Indwelling Catheter Indwelling Catheter # Voids 800 - Exam GENERAL: Well-appearing, well-nourished and in no acute distress. NECK: Supple without JVD or thyromegaly. LUNGS: Breath sounds clear to auscultation bilaterally. Respiration equal and unlabored. No wheezes, rales or rhonchi. HEART: Heart rate irregular without murmurs, rubs or gallops. S1 and S2 heard. EXTREMITIES: Normal range of motion, no edema. No clubbing or cyanosis. Peripheral pulses intact and strong. - Labs CBC & Chem 7: 04/26/19 06:07 04/28/19 05:50 Labs: Abnormal Lab Results - Last 24 Hours (Table) 04/28/19 Range/Units 05:50 BUN 45 H (9-20) mg/dL Creatinine 2.95 H (0.66-1.25) mg/dL Assessment and Plan Plan: Assessment:and Plan #1 acute renal failure secondary to urinary obstruction #2 acute non-ST elevation myocardial infarction #3 cardiomyopathy, unspecified #4 severe pulmonary hypertension #6 hypertension #7 dyslipidemia Plan From cardiology's perspective, we'll recommend to continue this patient on his current medications. We will follow him up as an outpatient, and down the road patient will undergo evaluation to rule out underlying coronary artery disease. Follow-up appointment with Dr. Sorto in the office post discharge. DNP note has been reviewed, I agree with a documented findings and plan of care. Patient was seen and examined.
--- NOTE | 2019-05-05 20:14 | P.DS ---
Providers Date of admission: 04/23/19 13:58 Attending physician: Jonathan Anderson MD Consults: 04/23/19 13:56 Consult Physician Routine Consulting Provider: Vineet Bowman Consult Reason/Comments: elevated troponin, chf? Do you want consulting provider notified?: Already Contacted 04/23/19 14:39 Consult Physician Urgent Consulting Provider: Kaia Sood Consult Reason/Comments: [place] Do you want consulting provider notified?: Yes 04/23/19 19:33 Consult Physician Urgent Consulting Provider: Pepito Gutierrez Consult Reason/Comments: right hydronephrosis Do you want consulting provider notified?: Yes Primary care physician: Elliot Alvarado Hospital Course: Diagnoses: Acute kidney injury, versus chronic kidney disease. new Diagnoses, secondary to obstructive uropathy Bilateral hydronephrosis secondary to urinary retension, mostly related to enlarged prostate Acute non-STEMI Acute systolic congestive heart failure. Ejection fraction 30-35% COPD, not in acute exacerbation Nicotine dependence Multiple heart valve disease including moderate mitral regurgitation, moderate tricuspid regurgitation Severe pulmonary hypertension Hospital course: This is a pleasant 79-year-old gentleman did not see a physician in more than 7 years with unknown past medical history was transferred from [facility] to [facility] for further evaluation off abnormal kidney function and elevated creatinine. On admission patient was found to have elevated at 3.7, with right sided hydronephrosis and kind of atrophic left kidney. Turcios catheter was placed where he has hematuria for short time and got cleared for the last couple days prior to discharge. Patient also had elevated troponin and ST depression in the anterolateral leads, patient was diagnosed with non-STEMI and he was given showed course of heparin drip which was dissected secondary to his hematuria. Patient has been evaluated by tufter hand, urologist and ui ux developer. Patient has Turcios catheter inserted and received gentle hydration for 2 days, his creatinine only slightly improved down to 2.95 indicating more chronic kidney problem. Keep the Turcios catheter and follow-up outpatient in 1-2 weeks to establish his creatinine baseline. While tufter hand recommended outpatient workup as patient is asymptomatic currently and because of his kidney disease. Echo showed systolic dysfunction, ith EF between 30-35% with evidence of wall motion abnormalities concerning for severe underlying coronary artery disease, moderate MR, moderate TR, severe pulmonary hypertension Patient remained asymptomatic other than that, he denies chest pain or dyspnea. No change in bowel habits. No fever. Patient was cleared for discharge by all consultants including urology, cardiology and nephrology. Patient was eager to go home. Patient was instructed not to drive until he sees his doctors outside. Problems and management plan were discussed with the patient and he verbalized understanding and acceptance Patient was found stable and can be discharged home however he needs follow-up as an outpatient. Patient agrees with the appointments made for him with pcp, cardiology , nephrology and urology and he states he will follow-up Gen: patient is a AAOx3, no distress CVS: S1-S2, RRR, no murmur Lungs: B/L CTA, no wheezing Abdomen: soft, no distention, no tenderness, positive bowel sounds. Turcios catheter is in place with clear urine in it. Extremity: no leg edema or induration Time spent more than 35 minutes Patient Condition at Discharge: Stable Plan - Discharge Summary Discharge Rx Participant: Yes New Discharge Prescriptions: New hydrALAZINE HCL [Apresoline] 50 mg PO TID #90 tab Aspirin 81 mg PO DAILY #30 chew Tamsulosin [Flomax] 0.4 mg PO PC-BRKFST #30 cap.er.24h Isosorbide Mononitrate ER [Imdur] 30 mg PO DAILY #30 tab.er.24h Atorvastatin [Lipitor] 40 mg PO DAILY #30 tab Metoprolol Tartrate [Lopressor] 50 mg PO BID #30 tab Nitroglycerin Sl Tabs [Nitrostat] 0.4 mg SUBLINGUAL Q5M PRN #30 tab PRN Reason: Chest Pain Continue Latanoprost/Pf [Latanoprost 0.005% Eye Drop] 1 drop BOTH EYES HS Discharge Medication List Latanoprost/Pf [Latanoprost 0.005% Eye Drop] 1 drop BOTH EYES HS 04/23/19 [History] Aspirin 81 mg PO DAILY #30 chew 04/28/19 [Rx] Atorvastatin [Lipitor] 40 mg PO DAILY #30 tab 04/28/19 [Rx] Isosorbide Mononitrate ER [Imdur] 30 mg PO DAILY #30 tab.er.24h 04/28/19 [Rx] Metoprolol Tartrate [Lopressor] 50 mg PO BID #30 tab 04/28/19 [Rx] Nitroglycerin Sl Tabs [Nitrostat] 0.4 mg SUBLINGUAL Q5M PRN #30 tab 04/28/19 [Rx] Tamsulosin [Flomax] 0.4 mg PO PC-BRKFST #30 cap.er.24h 04/28/19 [Rx] hydrALAZINE HCL [Apresoline] 50 mg PO TID #90 tab 04/28/19 [Rx] Follow up Appointment(s)/Referral(s): Vineet Bowman MD [STAFF PHYSICIAN] - 05/08/19 3:45 pm (Saturday bring ID, insurance card) Elliot Alvarado MD [Primary Care Provider] - 05/01/19 1:00 pm (Saturday) Matt Jj DO [STAFF PHYSICIAN] - 06/11/19 10:40 am ( -earliest available appointment) Pepito Gutierrez MD [STAFF PHYSICIAN] - 05/07/19 8:20 am (Spoke to bilingual medical receptionist. Office to call with appointment time.) Patient Instructions/Handouts: Turcios Catheter Placement and Care (DC) Activity/Diet/Wound Care/Special Instructions: A&D home care Activity Limited until follow-up Continue current diet Follow-up with specialist as discussed Discharge Disposition: HOME WITH HOME HEALTH SERVICES
== END 2019-04-28 16:07 | disposition home health service (06) | DRG 280 ==
LOC: EC 12:48 → 3SCARD 13:58
PROVIDERS: ADMIT Internal Medicine; ATTEND Internal Medicine
DX: I21.4 Non-ST elevation (NSTEMI) myocardial infarction (principal); I50.21 Acute systolic (congestive) heart failure; N17.9 Acute kidney failure, unspecified; N13.8 Other obstructive and reflux uropathy; I42.9 Cardiomyopathy, unspecified; N13.30 Unspecified hydronephrosis; I11.0 Hypertensive heart disease with heart failure; I27.20 Pulmonary hypertension, unspecified; J44.9 Chronic obstructive pulmonary disease, unspecified; R31.9 Hematuria, unspecified; D64.9 Anemia, unspecified; I08.1 Rheumatic disorders of both mitral and tricuspid valves; I25.10 Atherosclerotic heart disease of native coronary artery without angina pectoris; E78.5 Hyperlipidemia, unspecified; N40.1 Benign prostatic hyperplasia with lower urinary tract symptoms; R33.8 Other retention of urine; N39.498 Other specified urinary incontinence; R39.15 Urgency of urination; R35.1 Nocturia; H40.9 Unspecified glaucoma; F17.210 Nicotine dependence, cigarettes, uncomplicated; Z71.6 Tobacco abuse counseling; Z79.899 Other long term (current) drug therapy; Z90.49 Acquired absence of other specified parts of digestive tract; Z82.49 Family history of ischemic heart disease and other diseases of the circulatory system
CPT/HCPCS: 76770; 80048; 80061; 81003; 83735; 83880; 84484; 85025; 85730; 93306; 96365; 96376; 99285